=== PATIENT | male | born 1965 | race Caucasian/White ===

== ENCOUNTER → 2016-06-21 | Outpatient (CLI) | payer OTHER ==
[~2016-06-21] MED LIST: ALBUTEROL17 GM INH; ALDACTONE25 MG PO; AMARYL2 MG PO; ASPIRIN EC81 M1 PO; BACTRIM DS TABL1 TA1 PO; BP MED; BUSPAR15 M1 PO; DESYREL150 M1 PO; DIABETES MED; EFFEXOR-XR75 MG PO; GLUCOPHAGE500 MG PO; INVOKANA100 MG PO; JANUVIA25 MG PO; KLOR-CON PO; LANTUS100 UNITS/ SQ; LASIX20 MG PO; NEURONTIN600 MG PO; NITROGLYGERIN0.4 MG SL; NORVASC10 MG PO; NOVOLOG100 UNIT/1 SUBQ; OMEPRAZOLE40 M1 PO; PROAIR HFA8.5 GM IH; PROTONIX PO; ROSUVASTATIN CA40 MG PO; SYMBICORT INH; TOPROL XL PO; TOPROL XL50 MG PO; VITAMIN D50000 UNIT PO; ZESTORETIC 20-1 EAC1 PO; [UNRECOGNIZED DRUG - REMARK]
[2016-06-21 11:34] LABS: CHOLESTEROL 141 mg/dL (0-200); HDL CHOLESTEROL 33 mg/dL (29-75); LDL CHOLESTEROL 75 mg/dL (-130); LDL/HDL RATIO 2 RATIO (0-4); TRIGLYCERIDES 163 mg/dL (10-160)
== END | disposition home or self-care (01) ==
LOC: CLAB 10:03
PROVIDERS: Internal Medicine Endocrinology, Diabetes & Metabolism
DX: E78.5 Hyperlipidemia, unspecified (principal); E11.65 Type 2 diabetes mellitus with hyperglycemia
CPT/HCPCS: 36415; 80061; 83036

== ENCOUNTER 2016-07-17 20:48 | Emergency (ER) | payer OTHER ==
--- NOTE | ~2016-07-17 | CR63 ---
[facility] A Service of [facility] & [facility] RADIOLOGY TEXT RESULTS PATIENT: JABARI VIDAL LOCATION: CFT[facility] : 65 UNIT #: [id number] AGE: [address]: Amparo Flores APRN SEX: M ORDER DR: [id number] [facility] [address] [place], [place] [address] [id number] E MR#: [id number] Acc #: [id number] NAME: JABARI VIDAL : 1965 SEX: M STUDY DATE/TIME: 07/17/2016 21:44 UNIT: [facility] ROOM: STUDY DESCRIPTION: CR Chest 2 View Attending Physician: Amparo Flores A.P.R.N. Ordering Physician: Amparo Flores A.P.R.N. Primary Care Physician: Aiden Vidal Pa-C MEDICAL IMAGING REPORT This report is preliminary unless electronic signature is present EXAM Chest 2 views HISTORY Shortness of air, cough, chest pain onset today. COMPARISON Portable chest 04/09/2016. FINDINGS PA and lateral examination of the chest upright shows a good expansion of the parenchyma with a normal distribution of the pulmonary vascularity. There is no indication of congestion, effusion, infiltrate, tumor, or nodular density. The pleural reflections and diaphragmatic contours are normal. The cardiac silhouette and mediastinal anatomy is within normal limits. IMPRESSION Normal chest. Dictated by... Antonio Leone M.D. THIS IS AN ELECTRONICALLY VERIFIED REPORT Antonio Loene M.D. at 07/18/2016 2:39 PM RYLAND/bella TD: 07/18/2016 06:25 JOB #: [id number] MEDICAL IMAGING REPORT Page 1 of 1 COPY
[2016-07-17 20:29] LABS: INFLUENZA A POS (NEG); INFLUENZA B NEG (NEG)
[~2016-07-17 20:48] MED LIST changes: -ALBUTEROL17 GM INH; -ALDACTONE25 MG PO; -EFFEXOR-XR75 MG PO; -JANUVIA25 MG PO; -NOVOLOG100 UNIT/1 SUBQ; -OMEPRAZOLE40 M1 PO; -SYMBICORT INH; -TOPROL XL PO
[2016-07-25] MEDS ORDERED: NOVOLOG100 UNIT/1 SUBQ (20:43)
[2016-07-25] MEDS ORDERED: JANUVIA25 MG PO (20:43)
== END 2016-07-17 22:10 | disposition home or self-care (01) ==
LOC: CFTX 20:48
PROVIDERS: Nurse Practitioner
DX: J11.1 Influenza due to unidentified influenza virus with other respiratory manifestations (principal); Z88.0 Allergy status to penicillin; Z79.899 Other long term (current) drug therapy; Z79.82 Long term (current) use of aspirin; Z79.4 Long term (current) use of insulin
CPT/HCPCS: 71020; 82947; 87804; 87880; 94640; 99283

== ENCOUNTER 2016-07-25 21:54 | Emergency (ER) | payer OTHER ==
[~2016-07-25 21:54] MED LIST changes: +JANUVIA25 MG PO; +NOVOLOG100 UNIT/1 SUBQ
== END 2016-07-25 22:17 | disposition home or self-care (01) ==
LOC: SED 21:54
DX: T14.8 Other injury of unspecified body region (principal); L03.116 Cellulitis of left lower limb; E11.9 Type 2 diabetes mellitus without complications; J44.9 Chronic obstructive pulmonary disease, unspecified; F32.9 Major depressive disorder, single episode, unspecified; I25.2 Old myocardial infarction; F41.9 Anxiety disorder, unspecified; Z88.0 Allergy status to penicillin
CPT/HCPCS: 99282; J1610

== ENCOUNTER 2016-09-15 21:03 | Emergency (ER) | payer OTHER ==
--- NOTE | ~2016-09-15 | EKG ---
PATIENT: JABARI CUELLO UNIT #: [id number] Ventricular Rate: 69 BPM Atrial Rate: 69 BPM P-R Interval: 174 ms QRS Duration: 156 ms Q-T Interval: 472 ms QTC Calculation(Bezet): 505 ms P [place]: 56 degrees Calculated R [place]: 54 degrees Calculated T [place]: 69 degrees Diagnosis Line: Normal sinus rhythm Diagnosis Line: Left bundle branch block Diagnosis Line: Abnormal ECG Diagnosis Line: No previous ECGs available Diagnosis Line: Confirmed by MACI PANIAGUA MD ([id number]) on Diagnosis Line: 09/17/2016 8:46:13 AM INTERPRETING MD: ARCELIA MONTEMAYOR
--- NOTE | ~2016-09-15 | CR72 ---
[facility] A Service of [facility] & [facility] RADIOLOGY TEXT RESULTS PATIENT: ATUL CUELLO LOCATION: [facility] : [birth year] UNIT #: [id number] AGE: [address]: Jose Antonio Alston MD SEX: M ORDER DR: [id number] [facility] [address] [place], [place] [address] [id number] E MR#: [id number] Acc #: [id number] NAME: ATUL CUELLO : 1965 SEX: M STUDY DATE/TIME: 09/15/2016 22:45 UNIT: [facility] ROOM: STUDY DESCRIPTION: CR Chest Single View Portable Attending Physician: Jose Antonio Alston M.D. Ordering Physician: Jose Antonio Alston M.D. Primary Care Physician: Atul Clark M.D. MEDICAL IMAGING REPORT This report is preliminary unless electronic signature is present EXAM Single view chest INDICATIONS Chest pain. FINDINGS Single portable AP view of the chest compared to 07/17/2016. Heart and mediastinal contours are normal. Lungs are clear. IMPRESSION No acute findings. Dictated by... Derik Sin M.D. THIS IS AN ELECTRONICALLY VERIFIED REPORT Derik Sin M.D. at 09/16/2016 3:24 AM YOLANDA/radha TD: 09/16/2016 02:39 JOB #: [id number] MEDICAL IMAGING REPORT Page 1 of 1 COPY
[2016-09-15 23:16] LABS: POC - CKMB 6.8 ng/mL (0.0-7.9); POC - TROPONIN <0.05 ng/mL (<=0.05)
[2016-09-15 23:25] LABS: BASOPHIL% 0.4 % (0-2.5); EOSINOPHIL# 0.1 X10e3 (0-0.7); EOSINOPHIL% 1.7 % (0.0-7.0); HEMATOCRIT 44.7 % (38.0-50.0); HEMOGLOBIN 15.2 gm/dL (13.0-16.0); LYMPHOCYTE# 2.3 X10e3 (1.0-3.5); LYMPHOCYTE% 32.4 % (17.0-45.0); MEAN CORPUSCULAR HEMOGLOBIN 27.2 PG (28-34); MEAN PLATELET VOLUME 7.5 FL (6.5-11.5); MONOCYTE# 0.6 X10e3 (0-1.0); MONOCYTE% 8.9 % (3.0-12.0); NEUTROPHIL% 56.6 % (40-75); PLATELET COUNT 155 X10e3 (140-420); RED BLOOD COUNT 5.58 X10e (3.90-5.60); RED CELL DISTRIBUTION WIDTH 13.8 % (11.0-15.5); WHITE BLOOD COUNT 7.1 X10e3 (4.0-10.5)
[2016-09-15 23:26] LABS: DIFF IND NO
[2016-09-15 23:54] LABS: ALBUMIN SERUM 4.4 g/dL (3.5-5.0); BILIRUBIN, DIRECT 0.2 mg/dL (0.0-0.2); BILIRUBIN,INDIRECT 1.1 mg/dL (0.0-0.9); BILIRUBIN,TOTAL 1.3 mg/dL (0.2-2.0); CALCIUM SERUM 8.8 mg/dL (8.4-10.2); CREATININE SERUM 0.6 mg/dL (0.6-1.4); GLOM FILT RATE Estimated 116.5 mL/min (>60); MAGNESIUM 1.9 mg/dL (1.6-3.0); POTASSIUM 3.3 mmol/L (3.5-5.1); PROTEIN TOTAL SERUM 7.5 g/dL (6.0-8.3)
[2016-09-16 01:11] LABS: POC - TROPONIN <0.05 ng/mL (<=0.05)
[2016-09-17] MEDS ORDERED: TOPROL XL PO (13:45)
[2016-09-17] MEDS ORDERED: SYMBICORT INH (13:46)
[2016-09-17] MEDS ORDERED: EFFEXOR-XR75 MG PO (13:47)
[2016-09-17] MEDS ORDERED: ALBUTEROL17 GM INH (13:48)
== END 2016-09-16 01:48 | disposition home or self-care (01) ==
LOC: CED 21:03
PROVIDERS: Emergency Medicine
DX: R07.2 Precordial pain (principal); I10 Essential (primary) hypertension; E78.5 Hyperlipidemia, unspecified; K21.9 Gastro-esophageal reflux disease without esophagitis; J44.9 Chronic obstructive pulmonary disease, unspecified; E11.9 Type 2 diabetes mellitus without complications; I25.2 Old myocardial infarction; F32.9 Major depressive disorder, single episode, unspecified; F41.9 Anxiety disorder, unspecified; Z88.0 Allergy status to penicillin; Z79.82 Long term (current) use of aspirin; Z79.899 Other long term (current) drug therapy; Z79.84 Long term (current) use of oral hypoglycemic drugs
CPT/HCPCS: 36415; 71010; 80048; 80076; 82553; 83735; 84484; 85025; 93005; 99284

== ENCOUNTER 2016-09-16 23:49 | Observation (INO) | payer OTHER ==
--- NOTE | ~2016-09-16 | CO ---
Unit #: [id number] #: [id number] Patient: ATUL CUELLO [id number] [facility]. [address] [place], [place] [address] [id number] I MR#: [id number] NAME: ATUL CUELLO ROOM: 571 Age: 51 Sex: M Admission Date: 09/17/2016 : 1965 Attending Physician: Gilberto Garcia M.D. Primary Care Physician: Atul Clark M.D. Consultation Date: 09/17/2016 CONSULTATION REPORT PRIMARY CARE PHYSICIAN Aiden Cuello PA-C. REASON FOR CONSULTATION Epigastric and upper abdominal pain. HISTORY OF PRESENT ILLNESS Mr. Cuello is a 51-year-old white gentleman. The patient was interviewed and examined in his room at bedside. His was present at the same time. The patient apparently has been in the emergency room twice in the past for a couple of days, initially with mental confusion, fatigue, lethargy and near syncope and second time with chest pain that resolved with nitroglycerin and aspirin. In addition, he mentions left upper quadrant epigastric pain, which is intermittent. He also has symptoms of retrosternal ascending heartburn, postprandial reflux for which he takes Rolaids on an as needed basis. He was last time prescribed pantoprazole or omeprazole a couple of years ago, but seemingly he has not been taking them. He apparently had a heart catheterization a couple of years ago, which was according to the patient abnormal, but not in the sufficiently abnormal to require PTCAs and angioplasties. PAST MEDICAL HISTORY Significant for history of coronary artery disease, myocardial infarction, hypertension, COPD, chronic renal insufficiency, managed by Dr. Bobby, and COPD. Also has a history of prostate cancer, treated by radiation more than 10 years ago. PAST SURGICAL HISTORY Included knee surgery, cataract extraction, and tonsillectomy. FAMILY HISTORY Stroke and renal disease in the family. No history of esophageal or colon cancer. There was also history of cirrhosis of liver in the family. SOCIAL HISTORY He lives with his . Does not smoke or drink alcohol at least for the past 20 years. ALLERGIES He has no known drug allergies. BODY AFTER AXIS Unit #: [id number] #: [id number] Patient: ATUL CUELLO MEDICATIONS At home, the patient does not take any Coumadin, Plavix, or anticoagulation. Rest of the medications were reviewed from records. REVIEW OF SYSTEMS Detailed review of organ systems does not reveal any recent weight loss. No history of fever, chills, or rigors. No history of headache or seizures. There is a history of chest pain and near syncope. No history of cough, expectoration, or hemoptysis. No history of dysuria, hematuria, or pyuria. No history of focal seizures or extremity weakness. No history of skin rash, aphthous ulcers in the mouth, or reactive arthritis. PHYSICAL EXAMINATION GENERAL: He is alert and oriented, and appears overweight. VITAL SIGNS: Stable with a temperature of 98.0, pulse is 58 per minute and regular, respiratory rate is 17 per minute, blood pressure is 129/80. He weighs 213 pounds, which is close to his baseline weight. HEENT: He has no pallor, icterus, lymphadenopathy, or peripheral edema. CARDIOVASCULAR: Normal heart sounds. No murmurs on auscultation. LUNGS: Reveal normal breath sounds. Good air entry. ABDOMEN: Soft, obese, and nontender. Liver and spleen are not palpable. Bowel sounds normal. DIAGNOSTIC STUDIES LABORATORY RESULTS: Shows a completely normal CBC except for an MCV of 79.5, hemoglobin is 16.9, platelet count is normal. INR is 1.0. Serum chemistry shows a normal BUN and creatinine, electrolytes and AST and ALT of 48 each respectively. Alkaline phosphatase and bilirubin are normal. CLINICAL IMPRESSION The patient's symptomatology does seem like it is from ischemic cardiac pain or angina. The other possibilities include that of untreated gastroesophageal reflux. A diagnostic endoscopy is in order and will be scheduled for tomorrow morning. The pros and cons of procedure, potential risks and complications were discussed with the patient and he was reassured. Thank you for asking me to see this pleasant gentleman. I appreciate the consult. Dictated by... Barbara Blackburn/ayo TD: 09/19/2016 01:15 JOB #: [id number] Unit #: [id number] #: [id number] Patient: ATUL CUELLO CONSULTATION REPORT Page 1 of 1 X Baldemar Kang MD X CONSULTATION REPORT
--- NOTE | ~2016-09-16 | OR ---
Unit #: [id number] #: [id number] Patient: ATUL CUELLO [id number] [address] [place], [place] [address] [id number] I MR#: [id number] NAME: ATUL CUELLO ROOM: 571 Date of Procedure: 09/18/2016 Admission Date: 09/17/2016 Surgeon: Baldemar Kang M.D. : 1965 Attending Physician: Gilberto Garcia M.D. Primary Care Physician: Atul Clark M.D. OPERATIVE REPORT PRIMARY CARE PHYSICIAN Atul Clark M.D. PREOPERATIVE DIAGNOSES Epigastric pain, retrosternal ascending heartburn, and noncardiac chest pain. PROCEDURES PERFORMED Upper gastrointestinal endoscopy and biopsy. POSTOPERATIVE DIAGNOSES 1. The patient had moderate prepyloric antral erosive diffuse gastritis. 2. There was mild focal patchy erosive duodenitis. 3. Rest of the examination up to third part of duodenum was normal. No evidence of esophagitis was seen. RECOMMENDATIONS The patient is advised to use pantoprazole or omeprazole 40 mg p.o. daily. He can be discharged home on this same treatment. Incidentally, symptomatology of chest pain, confusion, and near syncope is not explained by the above findings. SEDATION USED MAC. DESCRIPTION OF PROCEDURE Following detailed explanation of the potential risks and complications of upper endoscopy, namely perforation, bleeding, and complications related to sedation, the patient was brought to GI lab and laid in the left lateral decubitus position. Lubricated tip of the Olympus video upper endoscope was passed through bite block into the proximal esophagus under direct vision. The entire esophageal mucosa was examined and appeared normal. Z-line was nicely demarcated, there being no esophagitis or hiatus hernia. The scope was then advanced into the gastric cavity and the latter was insufflated. Mucosa of the fundus, body, and antrum examined. The patient was noted to have diffuse prepyloric antral erosive gastritis. Pylorus was intubated with visualization of the duodenal bulb. The latter was noted to have mild focal patchy erosive duodenitis. Second and third part of duodenum were normal. Upon withdrawal and retroflexion, incisura, cardia, and greater curve examined and biopsy obtained from the antrum for CLOtest. The scope was then withdrawn in the distal esophagus. Entire esophageal mucosa was examined all the way up to pharynx. No Unit #: [id number] #: [id number] Patient: ATUL CUELLO additional findings noted. The patient tolerated the procedure without any postprocedure complications. Dictated byBarbara Chicas/ayo TD: 09/18/2016 22:25 JOB #: [id number] OPERATIVE REPORT Page 1 of 1 X Baldemar Kang MD X PROCEDURE OPERATIVE NOTE
--- NOTE | ~2016-09-16 | EKG ---
PATIENT: JABARI CUELLO UNIT #: [id number] Ventricular Rate: 60 BPM Atrial Rate: 60 BPM P-R Interval: 172 ms QRS Duration: 158 ms Q-T Interval: 504 ms QTC Calculation(Bezet): 504 ms P [place]: 48 degrees Calculated R [place]: 30 degrees Calculated T [place]: 85 degrees Diagnosis Line: Normal sinus rhythm Diagnosis Line: Left bundle branch block with repolarization Diagnosis Line: abnormality Diagnosis Line: Abnormal ECG Diagnosis Line: When compared with ECG of 15-SEP-2016 21:19, Diagnosis Line: No significant change was found Diagnosis Line: Confirmed by TIFFANY SMITH MD ([id number]) on 09/18/2016 Diagnosis Line: 5:59:06 PM INTERPRETING MD: LUIS MONTEMAYOR
--- NOTE | ~2016-09-16 | DS ---
Unit #: [id number] #: [id number] Patient: ATUL CUELLO [id number] [address] [address] [id number] I MR#: [id number] NAME: ATUL CUELLO ROOM: 571 Age: Sex: M Admission Date: 09/17/2016 : 1965 Discharge Date: Attending Physician: Gilberto Garcia M.D. Primary Care Physician: Atul Clark M.D. DISCHARGE SUMMARY DISCHARGE DIAGNOSES 1. Atypical chest pain. 2. Epigastric pain secondary to gastritis, status post esophagogastroduodenoscopy. 3. Nonobstructive coronary artery disease, status post cardiac catheterization in 2014 which showed left anterior descending 20% to 30%. 4. Chronic left bundle branch block. 5. Hypertension. 6. Obstructive sleep apnea. 7. Benign lung nodule. CONSULTS Consults for this patient include: 1. Dr. Aceves. 2. Dr. William. PROCEDURES On September 18, 2016, the patient underwent an EGD which showed gastritis. LABORATORY Most recent laboratory results - cholesterol 123, triglycerides 134, LDL 67, HDL 29, sodium 137, potassium 3.8, chloride 101, CO2 26, BUN 15, creatinine 0.7, glucose 123, magnesium 2. HOSPITAL COURSE The patient is a 51-year-old man who is known to Dr. Garcia. He has a history of nonobstructive coronary artery disease that was found on a catheterization in 2014 which showed LAD 20% to 30% stenosis. He has a past medical history of hypertension, hyperlipidemia, chronic left bundle branch block, diabetes, obstructive sleep apnea and GERD. The patient complained of chest tightness, substernal, that did not radiate. He reports that two days prior to his admission he had taken an aspirin and nitrate and his chest pain was relieved. When his chest pain returned, there was no relief even after taking the nitro and the aspirin. He came to the emergency room where he was found to have negative troponin x3. His EKG showed left bundle branch block but no acute changes. He did have mild elevation in his LFT. The patient was admitted for further workup. The patient's home medicines were continued. Ultimately, he did undergo an EGD which showed a normal esophagus and erosive gastritis. Pulmonary was consulted and will follow. Patient will need to follow up with Unit #: [id number] #: [id number] Patient: KHUSHBOOATUL William in his office to obtain a PFT. He does have a history of a lung nodule that is stable from a CT of the chest from June 30, 2014, to April 10, 2016. Again, this is a benign nodule. Today, the patient is awake, alert, in no acute distress. He has undergone an EGD. He is hemodynamically stable and ready for discharge. I have discussed this case with Dr. Garcia and he is agreeable. DISCHARGE FOLLOWUP INSTRUCTIONS 1. The patient will be discharged to home. He will follow up with Dr. Garcia in two weeks. Follow with primary care provider in one week. Follow with Dr. Aceves in four weeks. Follow up with Dr. William in two weeks. 2. Healthy heart diet. 3. Activity as tolerated. DISCHARGE MEDICATIONS 1. Ventolin, one to two puffs inhalation t.i.d. p.r.n. shortness of breath. 2. Symbicort 160/4.5 mcg, two puffs inhalation b.i.d. 3. Lisinopril/hydrochlorothiazide 20/12.5, one tab p.o. daily. 4. Neurontin 60 mg p.o. daily. 5. Trazodone 50 mg p.o. at bedtime p.r.n. sleep. 6. Effexor XR 75 mg p.o. daily. 7. Metformin 1000 mg p.o. b.i.d. 8. Januvia 100 mg p.o. daily. 9. BuSpar 10 mg p.o. b.i.d. 10. Toprol XL 25 mg p.o. daily. 11. Lasix 20 mg p.o. daily. 12. Rosuvastatin 40 mg p.o. at night. 13. NovoLog 5 units subcu a.c. 14. Aspirin 81 mg p.o. daily. 15. Spironolactone 25 mg p.o. daily. 16. Invokana 100 mg p.o. daily. 17. Omeprazole 40 mg p.o. daily. Dictated by... Homero JonesREstela. for Gilberto Garcia M.D. CARISA/anel TD: 09/18/2016 12:29 JOB #: [id number] DISCHARGE SUMMARY Page 1 of 1 X Clair Fajardo APRN X DISCHARGE SUMMARY
--- NOTE | ~2016-09-16 | HP ---
Unit #: [id number] #: [id number] Patient: ATUL CUELLO [id number] [facility]. [place], [place] [address] [id number] I MR#: [id number] NAME: ATUL CUELLO ROOM: 571 Age: 51 Sex: M Admission Date: 09/17/2016 : 1965 Attending Physician: Gilberto Garcia M.D. Primary Care Physician: Atul Clark M.D. HISTORY AND PHYSICAL HISTORY OF PRESENT ILLNESS This is a 51-year-old white male who is known to Dr. Garcia who has a history of nonobstructive coronary artery disease that was found on cardiac catheterization in 2014. He is known to have hypertension, diabetes, and obesity as risk factors for ischemic heart disease. The patient comes to the emergency room with the complaint of shortness of breath that is worse on exertion or with any movement. He also complained of chest tightness substernal that is not radiating to his neck, arm or jaw. Two days ago, he took aspirin and nitrate where chest pain was relieved. Yesterday, he had chest pain that returned but there was no relief after taking aspirin and two nitroglycerin tablets. He came to the emergency room where he was found to have negative troponin x3. EKG shows left bundle branch block but no acute ischemic changes. There was mild elevation of his LFTs. PAST MEDICAL HISTORY 1. Cardiac catheterization, 10/11/[address] Hernandez at [facility], revealed left main normal; LAD 20% to 30% stenosis; circumflex artery and right coronary artery normal; ejection fraction 60%. 2. 2D echocardiogram 10/04/2014 shows an ejection fraction of greater than 55% with trace mitral regurgitation. 3. Hypertension. 4. Diabetes mellitus type 2. 5. Chronic left bundle branch block. 6. Asthma. 7. Obstructive sleep apnea. 8. GERD. 9. Nonsmoker. PAST SURGICAL HISTORY 1. Tonsillectomy. 2. Cataract extraction. 3. Knee surgery. HOME MEDICATIONS 1. Aspirin 81 mg daily. 2. BuSpar 10 mg b.i.d. 3. Glucophage 1000 mg b.i.d. 4. Zestoretic 20/12.5 mg one tablet daily. 5. Neurontin 600 mg daily. 6. Furosemide 20 mg daily. 7. Invokana 100 mg daily. 8. Crestor 40 mg h.s. Unit #: [id number] #: [id number] Patient: ATUL CUELLO 9. Trazodone 50 mg h.s. p.r.n. 10. Januvia 100 mg daily. 11. NovoLog 7 units subcu t.i.d. a.c. meals 12. Metoprolol succinate 25 mg daily. 13. Symbicort 160/4.5 mcg two puffs b.i.d. 14. Effexor 75 mg daily. 15. Albuterol one to two puffs t.i.d. p.r.n. ALLERGIES Penicillin. FAMILY HISTORY Negative for coronary artery disease. REVIEW OF SYSTEMS CONSTITUTIONAL: Negative for fever or chills. No weight loss or weight gain. HEENT: No headache, hearing or vision changes. No difficulty with swallowing. Negative for dizziness. CARDIOVASCULAR: Has chest pain described in the HPI. Denies palpitations. No paroxysmal nocturnal dyspnea or orthopnea. No syncope or near syncope. RESPIRATORY: Positive for dyspnea at rest worse on exertion. No cough or hemoptysis. GASTROINTESTINAL: Positive for epigastric pain that radiates to his mid back. No nausea or vomiting. No constipation, hematemesis or melena. EXTREMITIES: Negative for lower extremity edema. PHYSICAL EXAMINATION VITAL SIGNS: Blood pressure 129/80, heart rate 64, temperature 97.9, BMI is 33. GENERAL: This is an obese 51-year-old middle-aged white male who is in no acute respiratory distress. NEUROLOGIC: He is awake, alert, and oriented. There are no focal weaknesses. NECK: Trachea is midline. No thyromegaly or lymphadenopathy. No jugular venous distention. LUNGS: Diminished breath sounds both lungs with expiratory wheezes. HEART: S1, S2. Heart sounds normal. No murmurs, rubs, or clicks. Regular rate and rhythm. ABDOMEN: Soft, obese with tenderness in the epigastric region. No hepatomegaly. EXTREMITIES: Without leg edema. SKIN: Warm and dry. DIAGNOSTIC STUDIES LABORATORY: Glucose 88, BUN 16, creatinine 0.8, sodium 139, potassium 3.0, AST 48, ALT 48. White count 9.0, hemoglobin 16.9, hematocrit 49.0, platelet count 202. Troponin less than 0.05 times 2 and less than 0.03. IMAGING: Chest x-ray shows no active disease. CARDIOVASCULAR: EKG normal sinus rhythm with a left bundle branch block. IMPRESSION 1. Chest pain, questionable etiology. 2. Epigastric pain, questionable etiology. 3. Nonobstructive coronary artery disease with LAD stenosis of 20% to Unit #: [id number] #: [id number] Patient: ATUL CUELLO 30% per cardiac catheterization in 2014. 4. Chronic left bundle branch block. 5. Hypertension. 6. Obesity with BMI 33. 7. Hypokalemia. 8. Dyspnea, questionable asthma exacerbation. PLAN 1. The patient was admitted with chest pain. Chest pain is atypical for significant ischemic heart disease. He had nonobstructive disease to the LAD in 2014. He has risk factors for ischemic heart disease but in a nonsmoker doubt there is progression of his coronary artery disease. 2. Dyspnea may be asthma exacerbation. Will ask pulmonary to see the patient. 3. GI consult for epigastric pain. 4. Supplement potassium. 5. Further recommendations per Dr. Garcia. Dictated by Dayron Means A.P.R.N. for Gilberto Garcia M.D. AMPARO/millicent TD: 09/17/2016 18:08 JOB #: [id number] HISTORY AND PHYSICAL Page 1 of 1 X Dayron Means APRN X HISTORY AND PHYSICAL
--- NOTE | ~2016-09-16 | EKG ---
PATIENT: JABARI CUELLO UNIT #: [id number] Ventricular Rate: 53 BPM Atrial Rate: 53 BPM P-R Interval: 176 ms QRS Duration: 158 ms Q-T Interval: 520 ms QTC Calculation(Bezet): 487 ms P [place]: 51 degrees Calculated R [place]: 44 degrees Calculated T [place]: 75 degrees Diagnosis Line: Sinus bradycardia Diagnosis Line: Left bundle branch block with repolarization Diagnosis Line: abnormality Diagnosis Line: Abnormal ECG Diagnosis Line: When compared with ECG of 17-SEP-2016 07:38, Diagnosis Line: (unconfirmed) Diagnosis Line: No significant change was found Diagnosis Line: Confirmed by TIFFANY SMITH MD ([id number]) on 09/18/2016 Diagnosis Line: 6:08:55 PM INTERPRETING MD: LUIS MONTEMAYOR
--- NOTE | ~2016-09-16 | EKG ---
PATIENT: JABARI CUELLO UNIT #: [id number] Ventricular Rate: 68 BPM Atrial Rate: 68 BPM P-R Interval: 172 ms QRS Duration: 152 ms Q-T Interval: 484 ms QTC Calculation(Bezet): 514 ms P [place]: 48 degrees Calculated R [place]: 52 degrees Calculated T [place]: 52 degrees Diagnosis Line: Normal sinus rhythm Diagnosis Line: Left bundle branch block with repolarization Diagnosis Line: abnormality Diagnosis Line: Abnormal ECG Diagnosis Line: No previous ECGs available Diagnosis Line: Confirmed by TIFFANY SMITH MD ([id number]) on 09/18/2016 Diagnosis Line: 5:57:23 PM INTERPRETING MD: LUIS MONTEMAYOR
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
--- NOTE | ~2016-09-16 | CR72 ---
[facility] A Service of [facility] & [facility] RADIOLOGY TEXT RESULTS PATIENT: ATUL CUELLO LOCATION: [facility] [id number] : [birth year] UNIT #: [id number] AGE: [address]: MANI HILTON MD SEX: M ORDER DR: [id number] [facility] [address] [place], [place] [address] [id number] MR#: [id number] Acc #: [id number] NAME: ATUL CUELLO : 1965 SEX: M STUDY DATE/TIME: 09/17/2016 0:51 UNIT: BORIS ROOM: STUDY DESCRIPTION: CR Chest Single View Portable Attending Physician: Norma Solitario M.D. Ordering Physician: Ed Kelby Wylie M.D. Primary Care Physician: Atul Clark M.D. MEDICAL IMAGING REPORT This report is preliminary unless electronic signature is present EXAM Single view chest INDICATION Chest pain for 1 day. Dizziness. FINDINGS Single portable AP view of the chest compared to 09/15/2016. The heart and mediastinal contours are unchanged. Lungs are clear. No pleural effusion. IMPRESSION No acute cardiopulmonary findings. Dictated by... Derik Sin M.D. THIS IS AN ELECTRONICALLY VERIFIED REPORT Derik Sin M.D. at 09/17/2016 4:03 AM YOLANDA/placido TD: 09/17/2016 03:54 JOB #: [id number] MEDICAL IMAGING REPORT Page 1 of 1 COPY
--- NOTE | ~2016-09-16 | PFT ---
[id number] [facility] [address] [place], [place] [address] [id number] MR#: [id number] NAME: ATUL CUELLO ROOM: 571 SEX: M STUDY DATE/TIME: 09/29/2016 : 1965 AGE: 51 STUDY DESCRIPTION: Attending Physician: Gilberto Garcia M.D. Primary Care Physician: Atul Clark M.D. PULMONARY DIAGNOSTIC REPORT EXAM Pulmonary function test. FINDINGS Spirometry is suggestive of a restrictive defect. No definite obstructive defect identified. Flow volume loop is consistent with a restrictive defect. Please note that restriction cannot be confirmed by spirometry alone and would suggest full PFTs with lung volumes and diffusion capacity if clinically indicated. Dictated by... Tello Lawson M.D. MARCO/jeffery TD: 09/29/2016 09:40 JOB #: [id number] PULMONARY DIAGNOSTIC REPORT Page 1 of 1
[2016-09-17 01:14] LABS: POC - CKMB 6.9 ng/mL (0.0-7.9); POC - TROPONIN <0.05 ng/mL (<=0.05)
[2016-09-17 01:54] LABS: BASOPHIL% 0.4 % (0-2.5); EOSINOPHIL# 0.2 X10e3 (0-0.7); HEMOGLOBIN 16.9 gm/dL (13.0-16.0); LYMPHOCYTE% 33.2 % (17.0-45.0); MEAN CELL VOLUME 79.5 FL (83-96); MEAN CORPUSCULAR HEMOGLOBIN 27.4 PG (28-34); MEAN CORPUSCULAR HGB CONC 34.4 g/dL (30-36); MEAN PLATELET VOLUME 7.8 FL (6.5-11.5); MONOCYTE# 0.8 X10e3 (0-1.0); MONOCYTE% 9.3 % (3.0-12.0); NEUTROPHIL% 55.1 % (40-75); PLATELET COUNT 202 X10e3 (140-420); RED BLOOD COUNT 6.17 X10e (3.90-5.60); RED CELL DISTRIBUTION WIDTH 14.2 % (11.0-15.5)
[2016-09-17 01:55] LABS: DIFF IND NO
[2016-09-17 02:22] LABS: ALBUMIN SERUM 4.8 g/dL (3.5-5.0); BILIRUBIN, DIRECT 0.1 mg/dL (0.0-0.2); BILIRUBIN,INDIRECT 0.8 mg/dL (0.0-0.9); BILIRUBIN,TOTAL 0.9 mg/dL (0.2-2.0); CALCIUM SERUM 9.4 mg/dL (8.4-10.2); CREATININE SERUM 0.8 mg/dL (0.6-1.4); GLOM FILT RATE Estimated 103.5 mL/min (>60); PROTEIN TOTAL SERUM 8.1 g/dL (6.0-8.3)
[2016-09-17 03:35] LABS: POC - CKMB 6.4 ng/mL (0.0-7.9); POC - TROPONIN <0.05 ng/mL (<=0.05)
[2016-09-17 09:52] LABS: %MB 5.3 % (0.0-4.0); MB 10.4 ng/ml
[2016-09-17] MEDS ORDERED: TOPROL XL PO (13:45)
[2016-09-17] MEDS ORDERED: SYMBICORT INH (13:46)
[2016-09-17] MEDS ORDERED: EFFEXOR-XR75 MG PO (13:47)
[2016-09-17] MEDS ORDERED: ALBUTEROL17 GM INH (13:48)
[2016-09-17 16:32] LABS: %MB 5.5 % (0.0-4.0); MB 10.1 ng/ml
[2016-09-18 06:30] LABS: BUN/CREATININE RATIO 21.42; CALCIUM SERUM 9.1 mg/dL (8.4-10.2); CREATININE SERUM 0.7 mg/dL (0.6-1.4); GLOM FILT RATE Estimated 109.3 mL/min (>60); POTASSIUM 3.8 mmol/L (3.5-5.1)
[2016-09-18] MEDS ORDERED: ALDACTONE25 MG PO (14:10)
[2016-09-18] MEDS ORDERED: OMEPRAZOLE40 M1 PO (14:12)
== END 2016-09-18 15:23 | disposition home or self-care (01) ==
LOC: CED 23:49 → C5C 09-17 03:35 → CEDOF 09-17 03:35 → CED 09-17 03:35 → CEDOF 09-17 03:35 → C5C 09-17 03:35 → CED 09-17 03:55 → CEDOF 09-17 03:55 → C5C 09-17 03:55 → CEDOF 09-17 09:18 → C5C 09-17 09:18
PROVIDERS: Emergency Medicine; Internal Medicine Interventional Cardiology
DX: R07.89 Other chest pain (principal); K29.60 Other gastritis without bleeding; K29.80 Duodenitis without bleeding; I25.10 Atherosclerotic heart disease of native coronary artery without angina pectoris; I44.7 Left bundle-branch block, unspecified; I10 Essential (primary) hypertension; G47.33 Obstructive sleep apnea (adult) (pediatric); E11.9 Type 2 diabetes mellitus without complications; Z79.4 Long term (current) use of insulin; R91.1 Solitary pulmonary nodule; E66.9 Obesity, unspecified; Z68.33 Body mass index [BMI] 33.0-33.9, adult; Z79.84 Long term (current) use of oral hypoglycemic drugs; Z79.82 Long term (current) use of aspirin; Z88.0 Allergy status to penicillin
CPT/HCPCS: 71010; 80048; 80061; 80076; 82550; 82553; 82947; 83036; 83735; 84443; 84484; 85025; 85379; 87077; 93005; 94664; 94760; 99291; G0378; J1815